=== PATIENT | male | born 1955 | race Caucasian/White ===

== ENCOUNTER 2021-12-25 11:25 | Emergency (ER) | payer OTHER ==
[2021-12-25 11:40] VITALS: BMI 25.0
[2021-12-25 14:32] LABS: BASO % 0.6 % (0-2.0); EOS % 1.7 % (0-4.5); HEMOGLOBIN 13.9 GM/dL (11.7-16.9); LYMPH % 26.7 % (8-40); MEAN CELL VOLUME 91.2 fl (80-96); MONO % 8.1 % (3.8-10.2); NEUT % 62.9 % (42.8-82.8); PLATELET COUNT 316 10^3/uL (134-434); RBC 4.49 M/mm3 (4.00-5.60); RDW 13.3 % (11.9-15.9); WHITE BLOOD COUNT 7.8 K/mm3 (4.0-10.0)
[2021-12-25 14:36] VITALS: BP 115/75; PULSE 63; RESP 18; TEMP 98.6
[2021-12-25 14:47] LABS: CALCIUM 8.7 mg/dL (8.5-10.1)
[2021-12-25 14:48] LABS: ACTIVATED PTT 36.2 SECONDS (25.2-36.5); ALBUMIN 3.9 g/dl (3.4-5.0); BLOOD UREA NITROGEN 13.8 mg/dL (7-18); INR 1.05 (0.83-1.09); PROTHROMBIN TIME (PATIENT) 12.1 SEC (9.7-13.0)
[2021-12-25 14:51] LABS: CREATININE 0.8 mg/dL (0.55-1.3)
[2021-12-25 14:52] LABS: BILIRUBIN,TOTAL 0.5 mg/dL (0.2-1); TOT PROT 7.5 g/dl (6.4-8.2)
== END 2021-12-25 15:05 | disposition home or self-care (01) ==
LOC: JER 11:25
DX: M79.81 Nontraumatic hematoma of soft tissue (principal)
CPT/HCPCS: 36415; 76882-TC-RT-FY; 80053; 85025; 85610; 85730; 93971-TC; 99285-25